=== PATIENT | female | born 1970 | race African-American/Black ===

== ENCOUNTER 2016-04-01 17:19 | Inpatient (IN) | payer MEDICAID ==
[2016-04-01 18:52] VITALS: BP 181/101
--- NOTE | 2016-04-01 19:55 | ED Physician Chart ---
Chief Complaint/HPI - Patient Information Date Seen:: 04/01/16 Time Seen:: 19:51 Chief Complaint:: poor po intake History of Present Illness:: pt is severely confused due to hx of psych disease /psychosis. reportedly from [place] for not eating w drastic weight loss of 10lbs over the last 1 -2 weeks. pt is unable to contribute to her own medical history although she is awake and talking she has trouble answering questions or giving details of hx. no known recent illness nor pain. Allergies:: Allergies Allergy/AdvReac Type Severity Reaction Status Date / Time No Known Allergies Allergy Verified 04/01/16 18:45 Vitals:: Vital Signs - 8 hr 04/01/16 04/01/16 18:52 18:53 Temp 98.1 F HR 62 RR 16 BP 181/101 166/73 O2 Sat % 98 Historian:: EMS, Medical Records, Other Review of Systems - Review of Systems General/Constitutional: No fever, No chills, Weight loss, No weakness, No diaphoresis, No edema, Loss of appetite Skin: No skin lesions, No rash, No bruising Head: No headache, No light-headedness Eyes: No loss of vision, No pain, No diplopia ENT: No earache, No nasal drainage, No sore throat, No tinnitus Neck: No neck pain, No swelling, No thyromegaly, No stiffness, No mass noted Cardio Vascular: No chest pain, No palpitations, No PND, No orthopnea, No edema Pulmonary: No SOB, No cough, No sputum, No wheezing GI: No nausea, No vomiting, No diarrhea, No pain, No melena, No hematochezia, No constipation, No hematemesis G/U: No dysuria, No frequency, No hematuria Musculoskeletal: No bone or joint pain, No back pain, No muscle pain Endocrine: No polyuria, No polydipsia Psychiatric: Prior psych history, No depression, No anxiety, No suicidal ideation Hematopoietic: No bruising, No lymphadenopathy Allergic/Immuno: No urticaria, No angioedema Neurological: No syncope, No focal symptoms, No weakness, No paresthesia, No headache, No seizure, No dizziness, Confusion, No vertigo Past Medical History - Past Medical History Past Medical History: HTN, PUD/GERD, Dementia, Other (insomnea, psychosis, fe deficit anemia) Social History: Care Facility Psychiatricy History: Schizophrenia, Dementia, Other (psychosis) Medication: Reviewed Family Medical History - Family Member Father History Unknown: Yes Physical Exam - Physical Examination General/Constitutional: Awake, Well-developed, well-nourished, Alert, No distress, GCS 15, Non-toxic appearing, Ambulatory Head: Atraumatic Eyes: Lids, conjuctiva normal, PERRL, EOMI Skin: Nl inspection, No rash, No skin lesions, No ecchymosis, Well hydrated, No lymphadenopathy ENMT: External ears, nose nl, Nasal exam nl, Lips, teeth, gums nl Neck: Nontender, Full ROM w/o pain, No JVD, No nuchal rigidity, No bruit, No mass, No stridor Respiratory: Nl effort/Exclusion, Clear to Auscultation, No Wheeze/Rhonchi/Rales Cardio Vascular: RRR, No murmur, gallop, rubs, NL S1 S2 GI: No tenderness/rebounding/guarding, No organomegaly, No hernia, Normal BS's, Nondistended, No mass/bruits, No McBurney tenderness Other GI comments:: protuberant belly w firm masses ...hepatomegally and lrg mass palpable to left upper abd also. nontndr. pos nabs. no rebound. : No CVA tenderness Extremities: No tenderness or effusion, Full ROM, normal strength in all extremities, No edema, Normal digits & nails Other Extremities comments:: rash on hands w dark indurated skin (appears chronic) Neuro/Psych: DTR's symmetric, Normal sensory exam, Normal motor strength, Mood normal, Normal gait, No focal deficits Other Neuro/Psych comments:: confused pt- poor historian otw alert and talking and in nad. no focal defecits Misc: normal gait, Normal back, No paraspinal tenderness Labs/Radiology/EKG Results - Lab Results Results: Laboratory Tests 04/01/16 04/01/16 04/01/16 19:58 19:58 20:14 WBC 11.0 H RBC 5.57 H Hgb 12.9 Hct 39.1 MCV 70.1 L MCH 23.1 L MCHC Differential 32.9 RDW 21.9 H Plt Count 439 H MPV 8.3 Band Neutrophils % 5 Neutrophils (Manual) 74 Lymphocytes 16 L Monocytes 4 Eosinophils 1 Platelet Estimate ADEQUATE Platelet Morphology GIANT PLATELETS SEEN Polychromasia 1+ Poikilocytosis 1+ Anisocytosis 1+ Microcytosis 3+ Tear Drop Cells 2+ RBC Morph Micro Appear ABNORMAL Sodium Potassium Chloride Carbon Dioxide Anion Gap BUN Creatinine Est GFR ( Amer) Est GFR (Non-Af Amer) BUN/Creatinine Ratio Glucose Calcium Total Bilirubin AST ALT Alkaline Phosphatase Ammonia Total Protein Albumin Globulin Albumin/Globulin Ratio Triglycerides Cholesterol LDL Cholesterol Direct HDL Cholesterol Lipase TSH Serum , Qual Urine Source CLEAN C Urine Color YELLOW Urine Clarity CLEAR Urine pH 6.0 Ur Specific [place] 1.030 Urine Protein >300 H Urine Glucose (UA) NEGATIVE Urine Ketones NEGATIVE Urine Blood SMALL H Urine Nitrate NEGATIVE Urine Bilirubin NEGATIVE Urine Urobilinogen 1.0 Ur Leukocyte Esterase NEGATIVE Urine RBC 0-2 Urine WBC 6-10 H Ur Epithelial Cells MODERATE Urine Bacteria MODERATE Urine Test NEGATIVE 04/01/16 04/01/16 04/01/16 20:14 20:14 20:14 WBC RBC Hgb Hct MCV MCH MCHC Differential RDW Plt Count MPV Band Neutrophils % Neutrophils (Manual) Lymphocytes Monocytes Eosinophils Platelet Estimate Platelet Morphology Polychromasia Poikilocytosis Anisocytosis Microcytosis Tear Drop Cells RBC Morph Micro Appear Sodium 134 L Potassium 3.9 Chloride 107 Carbon Dioxide 24.5 Anion Gap 6.4 L BUN 27 H Creatinine 1.3 H Est GFR ( Amer) 57.0 Est GFR (Non-Af Amer) 47.1 BUN/Creatinine Ratio 20.8 Glucose 121 H Calcium 9.2 Total Bilirubin 0.6 AST 23 ALT 15 Alkaline Phosphatase 110 H Ammonia Total Protein 7.2 Albumin 4.0 Globulin 3.2 Albumin/Globulin Ratio 1.3 Triglycerides 170 H Cholesterol 148 LDL Cholesterol Direct 66 L HDL Cholesterol 33 Lipase TSH 2.89 Serum , Qual NEGATIVE Urine Source Urine Color Urine Clarity Urine pH Ur Specific [place] Urine Protein Urine Glucose (UA) Urine Ketones Urine Blood Urine Nitrate Urine Bilirubin Urine Urobilinogen Ur Leukocyte Esterase Urine RBC Urine WBC Ur Epithelial Cells Urine Bacteria Urine Test 04/01/16 04/01/16 20:14 20:14 WBC RBC Hgb Hct MCV MCH MCHC Differential RDW Plt Count MPV Band Neutrophils % Neutrophils (Manual) Lymphocytes Monocytes Eosinophils Platelet Estimate Platelet Morphology Polychromasia Poikilocytosis Anisocytosis Microcytosis Tear Drop Cells RBC Morph Micro Appear Sodium Potassium Chloride Carbon Dioxide Anion Gap BUN Creatinine Est GFR ( Amer) Est GFR (Non-Af Amer) BUN/Creatinine Ratio Glucose Calcium Total Bilirubin AST ALT Alkaline Phosphatase Ammonia 56 H Total Protein Albumin Globulin Albumin/Globulin Ratio Triglycerides Cholesterol LDL Cholesterol Direct HDL Cholesterol Lipase 85 H TSH Serum , Qual Urine Source Urine Color Urine Clarity Urine pH Ur Specific [place] Urine Protein Urine Glucose (UA) Urine Ketones Urine Blood Urine Nitrate Urine Bilirubin Urine Urobilinogen Ur Leukocyte Esterase Urine RBC Urine WBC Ur Epithelial Cells Urine Bacteria Urine Test - Radiology Results Results: ct abd/p- massive splenomegally, large amt fecal cont., large uterous, no hydro , no free fluid ED Septic Shock - . Is Septic Shock (SBP<90, OR Lactate>4 mmol\L) present?: No - <6hrs of presentation: Vital Signs: Vital Signs - 8 hr 04/01/16 04/01/16 18:52 18:53 Temp 98.1 F HR 62 RR 16 BP 181/101 166/73 O2 Sat % 98 Reassessment (Disposition) - Reassessment Reassessment:: case dw Dr Cardoso....will admit Reassessment Condition:: Unchanged - Diagnosis Diagnosis:: 1 poor po intake and weight loss 2 massive splenomegally 3 uti 4 mild elevation of lipase and ammonia levels - Patient Disposition Admitted to:: Med/Surg Condition at Disposition:: Unchanged
[2016-04-01 20:30] LABS: HEMATOCRIT 39.1 % (35.0-45.0); HEMOGLOBIN 12.9 gm/dL (11.7-15.5); MEAN CELL VOLUME 70.1 fl (81-100); MEAN CORPUSCULAR HEMOGLOBIN 23.1 pg (27.0-31.0); MEAN CORPUSCULAR HGB CONC 32.9 pg (28.0-36.0); MEAN PLATELET VOLUME 8.3 fl; PLATELET COUNT 439 Th/cmm (150-400); RED BLOOD COUNT 5.57 Mil/cmm (3.80-5.10); RED CELL DISTRIBUTION WIDTH 21.9 % (11.5-20.0)
[2016-04-01 20:36] LABS: ALB/GLOB RATIO 1.3 (1.0-1.8); ANION GAP 6.4 (7.0-16.0); BILIRUBIN,TOTAL 0.6 mg/dL (0.3-1.0); BUN/CREATININE RATIO 20.8; CALCIUM SERUM 9.2 mg/dL (8.6-10.3); CARBON DIOXIDE 24.5 mEq/L (21.0-31.0); CREATININE - SERUM 1.3 mg/dL (0.6-1.2); POTASSIUM SERUM 3.9 mEq/L (3.5-5.1)
[2016-04-01 20:45] LABS: URINE COLOR YELLOW
[2016-04-01 20:46] LABS: URINE BILIRUBIN NEGATIVE (NEGATIVE); URINE BLOOD SMALL (NEGATIVE); URINE GLUCOSE (UA) NEGATIVE (NEGATIVE); URINE KETONE NEGATIVE (NEGATIVE); URINE PROTEIN >300 mg/dL (NEGATIVE)
[2016-04-01 21:03] LABS: TOTAL CELLS COUNTED 100
[2016-04-01 21:04] LABS: ANISOCYTOSIS 1+; BAND NEUTROPHILE 5 % (0-10); EOSINOPHIL 1 % (0-5); MICROCYTOSIS 3+; NEUTROPHILS 74 % (40-80); PLATELET ESTIMATE ADEQUATE (NORMAL); PLATELET MORPHOLOGY GIANT PLATELETS SEEN (NORMAL); POIKILOCYTOSIS 1+
[2016-04-01 21:05] LABS: POLYCHROMASIA 1+
[2016-04-01 21:06] LABS: TEAR DROP CELLS 2+
[2016-04-01 21:13] LABS: URINE BACTERIA MODERATE /hpf (NONE SEEN); URINE EPITHELIAL CELLS MODERATE /lpf (FEW); URINE RBC 0-2 /hpf (0-5)
[2016-04-01] MEDS ORDERED: Albuterol Nebulizer 2.5mg/3mL IH PRN (21:43)
[2016-04-01] MEDS ORDERED: Maalox 30 mL Cup PO PRN (21:43)
[2016-04-01] MEDS ORDERED: D5-0.45NS 1,000 ML IV SCH (21:45)
[2016-04-02] MEDS: Levofloxacin 500mg/100mL 500 MG/100 ML BAG IV SCH (05:55)
[2016-04-02 08:14] LABS: HEP B CORE IGM Negative (Negative); HEP C ANTIBODY <0.1 s/co ratio (0.0-0.9)
[2016-04-02] MEDS: Multivitamin w/ Minerals Tab PO SCH (08:49)
[2016-04-02] MEDS: Ferrous Sulfate 325 MG TAB PO SCH (08:49)
[2016-04-02] MEDS: Pantoprazole 40 mg EC Tab PO SCH ×2 (08:50→16:11)
[2016-04-02] MEDS ORDERED: NORGESTIMATE PO SCH (09:00)
[2016-04-02] MEDS ORDERED: [UNRECOGNIZED DRUG - OTHER] PO SCH (09:00)
[2016-04-02] MEDS ORDERED: ETHINYL ESTRADIOL PO SCH (09:00)
--- NOTE | 2016-04-02 11:27 | Diagnostic Imaging Report ---
CT abdomen and pelvis without intravenous contrast Indication: Abdominal mass, poor oral intake Comparison: None, Technique: Axial images were obtained from the lung bases to the bilateral proximal femurs without IV contrast. Coronal reconstructions were made. total DLP: 372, CTDI7.3 FINDINGS: Hypoventilatory and atelectatic changes of the lung bases are noted. Exam is limited due to lack of IV and oral contrast. There is massive hepatosplenomegaly. Small adjacent splenic granulomas are noted. There is associated mass effect upon the regional organs. There is poor evaluation of pancreas on this exam. Limited evaluation of the kidneys demonstrates no evidence of hydronephrosis or nephrolithiasis. The adrenal glands are poorly visualized. Prominent heterogeneous uterus is noted with calcifications. Copious amount of stool is noted. The no evidence of acute appendicitis. No evidence of free air or free fluid. The osseous structures demonstrate no acute abnormalities. IMPRESSION: Limited exam due to lack of IV and oral contrast. Massive hepatosplenomegaly. Please correlate with patient's clinical history and possible history of malignancy. Follow-up is recommended. Note exam was limited due to lack of IV and oral contrast Copious stool throughout the colon. Correlate clinically for constipation. Heterogeneous prominent uterus with calcifications which may be due to fibroid changes. Ultrasound would provide additional detail and assessment.
[2016-04-02 13:05] LABS: HEMOGLOBIN 12.3 gm/dL (11.7-15.5); MEAN CORPUSCULAR HEMOGLOBIN 23.1 pg (27.0-31.0)
[2016-04-02 13:14] LABS: HEMATOCRIT 37.6 % (35.0-45.0); MEAN CELL VOLUME 70.8 fl (81-100); MEAN CORPUSCULAR HGB CONC 32.7 pg (28.0-36.0); MEAN PLATELET VOLUME 9.6 fl; PLATELET COUNT 493 Th/cmm (150-400); RED BLOOD COUNT 5.31 Mil/cmm (3.80-5.10); RED CELL DISTRIBUTION WIDTH 22.4 % (11.5-20.0); WHITE BLOOD COUNT 9.6 Th/cmm (4.8-10.8)
[2016-04-02 13:17] LABS: INR 1.28 (0.5-1.4); PROTHROMBIN TIME (TEST) 12.9 SECONDS (9.5-11.5)
[2016-04-02 13:20] LABS: ANION GAP 4.1 (7.0-16.0); BUN - UREA NITROGEN 26 mg/dL (7-25); BUN/CREATININE RATIO 28.9; CALCIUM SERUM 8.9 mg/dL (8.6-10.3); CARBON DIOXIDE 25.1 mEq/L (21.0-31.0); CHLORIDE 110 mEq/L (98-107); CREATININE - SERUM 0.9 mg/dL (0.6-1.2); GLUCOSE 69 mg/dL (70-105); POTASSIUM SERUM 4.2 mEq/L (3.5-5.1); SODIUM SERUM 135 mEq/L (136-145)
[2016-04-02 13:45] LABS: ANISOCYTOSIS 1+; BAND NEUTROPHILE 7 % (0-10); METAMYELOCYTE 1 % (0-0); NEUTROPHILS 75 % (40-80); PLATELET ESTIMATE INCREASED PLATELETS (NORMAL); PLATELET MORPHOLOGY GIANT PLATELETS SEEN (NORMAL); TOTAL CELLS COUNTED 100
--- NOTE | 2016-04-02 16:28 | Internal Medicine Prog Note ---
Internal Medicine Subjective - Subjective Service Date: 04/02/16 ([id number]) Internal Medicine Objective - Results Result Diagrams: 04/02/16 12:33 04/02/16 12:33 Recent Labs: Laboratory Last Values WBC 9.6 Th/cmm (4.8-10.8) 04/02/16 12:33 RBC 5.31 Mil/cmm (3.80-5.10) H 04/02/16 12:33 Hgb 12.3 gm/dL (11.7-15.5) 04/02/16 12:33 Hct 37.6 % (35.0-45.0) 04/02/16 12:33 MCV 70.8 fl (81-100) L 04/02/16 12:33 MCH 23.1 pg (27.0-31.0) L 04/02/16 12:33 MCHC Differential 32.7 pg (28.0-36.0) 04/02/16 12:33 RDW 22.4 % (11.5-20.0) H 04/02/16 12:33 Plt Count 493 Th/cmm (150-400) H 04/02/16 12:33 MPV 9.6 fl 04/02/16 12:33 Band Neutrophils % 7 % (0-10) 04/02/16 12:33 Neutrophils (Manual) 75 % (40-80) 04/02/16 12:33 Lymphocytes 9 % (20-50) L 04/02/16 12:33 Monocytes 8 % (2-10) 04/02/16 12:33 Eosinophils Not Reportable 04/02/16 12:33 Metamyelocytes 1 % (0-0) H 04/02/16 12:33 Platelet Estimate INCREASED PLATELETS (NORMAL) 04/02/16 12:33 Platelet Morphology GIANT PLATELETS SEEN (NORMAL) 04/02/16 12:33 Polychromasia 1+ 04/01/16 20:14 Poikilocytosis 1+ 04/01/16 20:14 Anisocytosis 1+ 04/02/16 12:33 Microcytosis 3+ 04/01/16 20:14 Tear Drop Cells 2+ 04/01/16 20:14 RBC Morph Micro Appear ABNORMAL (NORMAL) 04/02/16 12:33 PT 12.9 SECONDS (9.5-11.5) H 04/02/16 12:33 INR 1.28 (0.5-1.4) 04/02/16 12:33 PTT (Actin FS) 40.4 SECONDS (26.0-38.0) H 04/02/16 12:33 Sodium 135 mEq/L (136-145) L 04/02/16 12:33 Potassium 4.2 mEq/L (3.5-5.1) 04/02/16 12:33 Chloride 110 mEq/L (98-107) H 04/02/16 12:33 Carbon Dioxide 25.1 mEq/L (21.0-31.0) 04/02/16 12:33 Anion Gap 4.1 (7.0-16.0) L 04/02/16 12:33 BUN 26 mg/dL (7-25) H 04/02/16 12:33 Creatinine 0.9 mg/dL (0.6-1.2) 04/02/16 12:33 Est GFR ( Amer) > 60.0 ml/min 04/02/16 12:33 Est GFR (Non-Af Amer) > 60.0 ml/min 04/02/16 12:33 BUN/Creatinine Ratio 28.9 04/02/16 12:33 Glucose 69 mg/dL (70-105) L 04/02/16 12:33 Calcium 8.9 mg/dL (8.6-10.3) 04/02/16 12:33 Total Bilirubin 0.6 mg/dL (0.3-1.0) 04/01/16 20:14 AST 23 U/L (13-39) 04/01/16 20:14 ALT 15 U/L (7-52) 04/01/16 20:14 Alkaline Phosphatase 110 U/L (34-104) H 04/01/16 20:14 Ammonia 56 umol/L (16-53) H 04/01/16 20:14 Total Protein 7.2 gm/dL (6.0-8.3) 04/01/16 20:14 Albumin 4.0 gm/dL (3.7-5.3) 04/01/16 20:14 Globulin 3.2 gm/dL 04/01/16 20:14 Albumin/Globulin Ratio 1.3 (1.0-1.8) 04/01/16 20:14 Triglycerides 170 mg/dL (<150) H 04/01/16 20:14 Cholesterol 148 mg/dL (<200) 04/01/16 20:14 LDL Cholesterol Direct 66 mg/dL (75-193) L 04/01/16 20:14 HDL Cholesterol 33 mg/dL (23-92) 04/01/16 20:14 Lipase 85 U/L (11-82) H 04/01/16 20:14 Carcinoembryonic Ag 0.8 ng/mL (0.0-4.7) 04/01/16 20:14 CA 19-9 Antigen 10 U/mL (0-35) 04/01/16 20:14 CA 125 Antigen 24.9 U/mL (0.0-38.1) 04/01/16 20:14 TSH 2.89 uIU/ml (0.34-5.60) 04/01/16 20:14 Serum , Qual NEGATIVE (NEGATIVE) 04/01/16 20:14 Urine Source CLEAN C 04/01/16 19:58 Urine Color YELLOW 04/01/16 19:58 Urine Clarity CLEAR (CLEAR) 04/01/16 19:58 Urine pH 6.0 04/01/16 19:58 Ur Specific [place] 1.030 (1.005-1.030) 04/01/16 19:58 Urine Protein >300 mg/dL (NEGATIVE) H 04/01/16 19:58 Urine Glucose (UA) NEGATIVE mg/dL (NEGATIVE) 04/01/16 19:58 Urine Ketones NEGATIVE mg/dL (NEGATIVE) 04/01/16 19:58 Urine Blood SMALL (NEGATIVE) H 04/01/16 19:58 Urine Nitrate NEGATIVE (NEGATIVE) 04/01/16 19:58 Urine Bilirubin NEGATIVE (NEGATIVE) 04/01/16 19:58 Urine Urobilinogen 1.0 E.U./dL (0.2 - 1.0) 04/01/16 19:58 Ur Leukocyte Esterase NEGATIVE (NEGATIVE) 04/01/16 19:58 Urine RBC 0-2 /hpf (0-5) 04/01/16 19:58 Urine WBC 6-10 /hpf (0-5) H 04/01/16 19:58 Ur Epithelial Cells MODERATE /lpf (FEW) 04/01/16 19:58 Urine Bacteria MODERATE /hpf (NONE SEEN) 04/01/16 19:58 Urine Test NEGATIVE 04/01/16 19:58 RPR NONREACTIVE (NONREACTIVE) 04/01/16 20:14 Hepatitis A IgM Ab Negative (Negative) 04/01/16 20:14 Hep Bs Antigen Negative (Negative) 04/01/16 20:14 Hep B Core IgM Ab Negative (Negative) 04/01/16 20:14 Hepatitis C Antibody <0.1 s/co ratio (0.0-0.9) 04/01/16 20:14 Heterophile Ab Screen Positive (Negative) 04/01/16 20:14 - Physical Exam Vitals and I&O: Vital Signs Temp 97.8 F 04/01/16 22:41 Pulse 58 04/02/16 16:13 Resp 18 04/01/16 22:41 BP 162/76 04/02/16 16:13 Pulse Ox 99 04/01/16 22:41 Active Medications: Current Medications Acetaminophen (Tylenol) 650 mg PO Q4HR PRN PRN Reason: Pain or Fever >101 Stop: 05/31/16 21:42 Al Hydrox/Mg Hydrox/Simethicone (Maalox) 30 ml PO Q6HR PRN PRN Reason: Constipation Stop: 05/31/16 21:42 Albuterol Sulfate (Albuterol 2.5mg/3ml Neb Ud) 2.5 mg IH Q2HR PRN PRN Reason: Shortness of Breath or Wheeze Stop: 05/31/16 21:42 Ascorbic Acid (Vitamin C) 500 mg PO DAILY [facility] Stop: 06/01/16 08:59 Last Admin: 04/02/16 08:48 Dose: 500 mg Carvedilol (Coreg) 25 mg PO BID [facility] Stop: 06/01/16 08:59 Last Admin: 04/02/16 16:13 Dose: Not Given Clonazepam (Klonopin) 0.5 mg PO BID [facility] PRN Reason: Protocol Stop: 06/01/16 08:59 Last Admin: 04/02/16 16:10 Dose: 0.5 mg Docusate Sodium (Colace) 100 mg PO DAILY [facility] Stop: 06/01/16 08:59 Last Admin: 04/02/16 08:50 Dose: Not Given Famotidine (Pepcid) 20 mg PO DAILY [facility] Stop: 06/01/16 08:59 Last Admin: 04/02/16 08:50 Dose: Not Given Ferrous Sulfate (Iron) 325 mg PO DAILY [facility] Stop: 06/01/16 08:59 Last Admin: 04/02/16 08:49 Dose: 325 mg Dextrose/Sodium Chloride (D5-0.45ns) 1,000 mls @ 70 mls/hr IV .[id number] [facility] Stop: 05/31/16 21:44 Last Admin: 04/02/16 05:49 Dose: 70 mls/hr Levofloxacin (Levaquin Pb) 500 mg in 100 mls @ 100 mls/hr IV Q24HR [facility] Stop: 05/31/16 22:59 Last Admin: 04/02/16 05:55 Dose: 100 mls/hr Lisinopril (Zestril) 10 mg PO DAILY [facility] Stop: 06/01/16 08:59 Last Admin: 04/02/16 08:50 Dose: Not Given Lorazepam (Ativan) 1 mg PO Q4HR PRN; Protocol PRN Reason: Anxiety Stop: 06/01/16 12:58 Meclizine HCl (Antivert) 25 mg PO DAILY PRN PRN Reason: Nausea / Vomiting Stop: 05/31/16 21:42 Miscellaneous (Norgestimate-Ethinyl Estradiol [Ortho Tri-Cyclen 28 Tablet]) 1 each PO DAILY [facility] Stop: 06/01/16 08:59 Olanzapine (Zyprexa) 10 mg PO HS [facility]I PRN Reason: Protocol Stop: 06/01/16 20:59 Ondansetron HCl (Zofran) 4 mg IV Q8H PRN PRN Reason: Nausea / Vomiting Stop: 05/31/16 21:42 Pantoprazole Sodium (Protonix) 40 mg PO BID [facility] Stop: 06/01/16 08:59 Last Admin: 04/02/16 16:11 Dose: 40 mg Paroxetine HCl (Paxil) 10 mg PO DAILY [facility] PRN Reason: Protocol Stop: 06/01/16 08:59 Last Admin: 04/02/16 08:47 Dose: 10 mg Polyethylene Glycol (Miralax) 17 gm PO DAILY [facility] Stop: 06/02/16 08:59 Zolpidem Tartrate (Ambien) 10 mg PO HS PRN PRN Reason: Insomnia Stop: 05/31/16 21:42 Internal Medicine Assmt/Plan - Assessment Assessment: generalized weakness splenomegaly UTI dehydration
--- NOTE | 2016-04-02 17:15 | History & Physical ---
CHIEF COMPLAINT: Poor oral intake. HISTORY OF PRESENT ILLNESS: This is a 45-year-old female who is a resident of [facility] who is admitted here to the med/surg unit. According to nursing staff at [facility], the patient was not eating, had a poor appetite and drastic weight loss of over 10 pounds over the last 1-2 weeks. Upon examination, the patient's abdomen is distended, nontender. The patient denies any abdominal pain. PAST MEDICAL HISTORY: Hypertension, GERD, dementia. Paranoid schizophrenia and major depressive disorder. PAST SURGICAL HISTORY: Unknown. SOCIAL HISTORY: The patient is a senior care resident, requiring 24-hour nursing care. MEDICATIONS: Please see medication reconciliation sheet. FAMILY HISTORY: Noncontributory. ALLERGIES: No drug allergies. REVIEW OF SYSTEMS: Unable to obtain. The patient is not cooperative with answering questions. PHYSICAL EXAMINATION: GENERAL: The patient is well developed, well nourished, in no apparent distress. VITAL SIGNS: Temperature 97.8, heart rate 65, blood pressure is ____, respirations 18, O2 99%. HEENT: Head; normocephalic, atraumatic. NECK: Supple. No mass. LUNGS: Clear bilaterally upon auscultation. CARDIOVASCULAR: Regular rate and rhythm. No murmurs or gallops. ABDOMEN: Distended, bowel sounds present in all 4 quadrants. LABORATORY DATA: WBC 9.6, H and H of 12.3 and 37.6, platelet of 493. Sodium 135, potassium 4.2, chloride 110, carbon dioxide 25.1, BUN of 26, creatinine 0.9. The patient had a CT of the abdomen and pelvis done and the impression is massive hepatosplenomegaly, ____ copious stool throughout the colon. ASSESSMENT: Generalized weakness, splenomegaly, urinary tract infection, dehydration. PLAN: The patient to be admitted to med/surg unit. The patient to have a consultation with Dr. Luis and Dr. James. The patient to be on a 2 g sodium diet, kept the patient on IV fluids for hydration. The patient will be on stool softener. We will continue to monitor the patient. JOB# [id number]
--- NOTE | 2016-04-02 21:42 | Consultation ---
PSYCHIATRIC CONSULTATION The patient was seen, chart reviewed, and discussed with staff. HISTORY OF PRESENT ILLNESS: The patient is a 45-year-old female with a history of schizophrenia, paranoid type versus schizoaffective disorder, apparently has been confused more, disorganized, refusing medications and has lost weight significantly and now is admitted to medical floor for increased debilitation. The patient remains highly paranoid, suspicious, thinking that people are coming after her. The patient is taking Invega Sustenna, but this medication was discontinued because her prolactin level was elevated. The patient since that time started to decompensate and condition got worse. PAST PSYCHIATRIC HISTORY: Multiple hospitalizations and chronic history of mental illness. PAST MEDICAL HISTORY: As per H and P. The patient is with anemia and significant weight loss and hypertension. PSYCHOSOCIAL HISTORY: The patient resides at [facility] since she requires complete care. MENTAL STATUS EXAMINATION: The patient's speech is fast at times. Affect is irritable. The patient remains highly paranoid and suspicious. The patient is internally preoccupied. Insight is poor. Judgment is impaired. ASSESSMENT: Schizoaffective disorder, psychotic phase. PLAN: We will use Zyprexa 10 mg p.o. at bedtime. Discontinue risperidone. Likelihood of prolactinemia is very low with Zyprexa. We will follow the patient while in the hospital. Thank you for the consultation. JOB# [id number]
--- NOTE | 2016-04-02 23:45 | Admit Criteria Form ---
Admit Criteria Forms - Admit Criteria Diagnosis: URINARY COMPLICATIONS Clinical Indications for Inpatient Care (Place 'X' for any and all applicable criteria): Ongoing inpatient care may be indicated for urinary complications with ANY ONE of the following: [ X]I. Urinary tract infection requiring inpatient care as indicated by ANY ONE of the following(8)(19)(20): [ ]a) Severe symptoms (eg, high fever, severe pain) [ ]b) Vomiting or dehydration requiring ongoing inpatient care [X]c) IV antibiotic needs that cannot be managed at lower level of care [ ]d) Hemodynamic instability [ ]e) Obstruction of collecting system by stone or tumor [ ]II. Urinary retention requiring drainage or surgery (3)(4)(5)(17)(18) [ ]III. Renal failure (Use Renal Failure Criteria for further information.) [ ]IV. Oliguria(30) [ ]V. Post obstructive diuresis requiring close monitoring of urine output and intravenous compensation for excessive fluid losses(33) Extended stay beyond goal length of stay for primary condition may be needed until ALL of the following are present(3)(4)(5)(8): [ ]a) Renal function (creatinine) at baseline, or daily decreases in creatinine consistent with renal function return [ ]b) Voiding adequately or with urinary catheter or percutaneous suprapubic tube and management regimen in place that is performable at lower level of care. [ ]c) Urine output adequate [ ]d) Fever absent or resolving [ ]e) Infection absent or treatable at next level of care The original [employer] content created by [employer] has been revised. The portions of the content which have been revised are identified through the use of italic text or in bold, and [facility] has neither reviewed nor approved the modified material. All other unmodified content is copyright [employer] [facility] [employer] Please see references footnoted in the original [facility] [employer] edition 2016 Admit Criteria Met?: Yes
--- NOTE | 2016-04-03 00:40 | Consultation ---
INPATIENT GI CONSULT REFERRING PHYSICIAN: Dr. Cardoso. REASON FOR CONSULTATION: Abdominal pain and fecal impaction. HISTORY OF PRESENT ILLNESS: This is a 45-year-old female from a skilled facility. The patient has underlying psychiatric illness, is a poor historian. We are asked to see the patient because they think she has fecal impaction. A poor historian. PAST MEDICAL HISTORY: Hypertension, peptic ulcer disease, GERD, dementia, and schizophrenia. PAST SURGICAL HISTORY: None to abdomen. FAMILY HISTORY: Noncontributory. SOCIAL HISTORY: Resident of skilled facility. ALLERGIES: None. MEDICATIONS: Tylenol, Maalox, albuterol, Coreg, Klonopin, docusate, Pepcid, iron, Levaquin, , Ativan, Antivert, Zyprexa, Protonix, Paxil, and Ambien. REVIEW OF SYSTEMS: Unobtainable. PHYSICAL EXAMINATION: VITAL SIGNS: Temperature 97.8, breathing 18, pulse of 65, blood pressure 151/70, and satting 99%. GENERAL: In no apparent distress. EYES: Anicteric. Normal conjunctivae. HEENT: Normocephalic and atraumatic. Moist mucous membranes. NECK: Soft and supple. CHEST: Clear, normal effort. CARDIOVASCULAR: Regular rate and rhythm. ABDOMEN: Soft and nontender. Mildly distended. SKIN: Warm and dry. EXTREMITIES: Reveal no cyanosis. PSYCHOLOGIC: Awake. LABORATORY DATA: White count 9.6, hemoglobin 12.3, and platelets of 493,000. INR is 1.28. CT abdomen and pelvis showed massive hepatosplenomegaly, copious amounts of stool throughout the entire colon, constipation, fibroid uterus. IMPRESSION: This is a 45-year-old female with constipation, fecal impaction, likely caused the abdominal discomfort. The patient again is a poor historian, unable to give any meaningful history. We could try to give the patient laxatives ____ that would help to improve bowel movements. In the future, the patient may need further testing such as barium enema versus a colonoscopy. PLAN: 1. Laxatives. 2. Consider barium enema versus colonoscopy in the near future. Thank you for allowing me to participate. Please call me if you have any questions. JOB# [id number]
[2016-04-03] MEDS: Levofloxacin 500mg/100mL 500 MG/100 ML BAG IV SCH ×2 (05:42→22:21)
[2016-04-03 09:19] LABS: FOLIC ACID 16.8 ng/mL (>3.0)
[2016-04-03] MEDS: Ferrous Sulfate 325 MG TAB PO SCH (09:21)
[2016-04-03] MEDS: Multivitamin w/ Minerals Tab PO SCH (09:21)
[2016-04-03] MEDS: Pantoprazole 40 mg EC Tab PO SCH ×2 (09:32→16:46)
[2016-04-03] MEDS: POLYETHYLENE GLYCOL 3350 17 GM PACK PO SCH (09:32)
--- NOTE | 2016-04-03 12:52 | Internal Medicine Prog Note ---
Internal Medicine Subjective - Subjective Service Date: 04/03/16 Patient seen and examined:: with staff Patient is:: awake Internal Medicine Objective - Results Result Diagrams: 04/02/16 12:33 04/02/16 12:33 Recent Labs: Laboratory Last Values WBC 9.6 Th/cmm (4.8-10.8) 04/02/16 12:33 RBC 5.31 Mil/cmm (3.80-5.10) H 04/02/16 12:33 Hgb 12.3 gm/dL (11.7-15.5) 04/02/16 12:33 Hct 37.6 % (35.0-45.0) 04/02/16 12:33 MCV 70.8 fl (81-100) L 04/02/16 12:33 MCH 23.1 pg (27.0-31.0) L 04/02/16 12:33 MCHC Differential 32.7 pg (28.0-36.0) 04/02/16 12:33 RDW 22.4 % (11.5-20.0) H 04/02/16 12:33 Plt Count 493 Th/cmm (150-400) H 04/02/16 12:33 MPV 9.6 fl 04/02/16 12:33 Band Neutrophils % 7 % (0-10) 04/02/16 12:33 Neutrophils (Manual) 75 % (40-80) 04/02/16 12:33 Lymphocytes 9 % (20-50) L 04/02/16 12:33 Monocytes 8 % (2-10) 04/02/16 12:33 Eosinophils Not Reportable 04/02/16 12:33 Metamyelocytes 1 % (0-0) H 04/02/16 12:33 Platelet Estimate INCREASED PLATELETS (NORMAL) 04/02/16 12:33 Platelet Morphology GIANT PLATELETS SEEN (NORMAL) 04/02/16 12:33 Polychromasia 1+ 04/01/16 20:14 Poikilocytosis 1+ 04/01/16 20:14 Anisocytosis 1+ 04/02/16 12:33 Microcytosis 3+ 04/01/16 20:14 Tear Drop Cells 2+ 04/01/16 20:14 RBC Morph Micro Appear ABNORMAL (NORMAL) 04/02/16 12:33 PT 12.9 SECONDS (9.5-11.5) H 04/02/16 12:33 INR 1.28 (0.5-1.4) 04/02/16 12:33 PTT (Actin FS) 40.4 SECONDS (26.0-38.0) H 04/02/16 12:33 Sodium 135 mEq/L (136-145) L 04/02/16 12:33 Potassium 4.2 mEq/L (3.5-5.1) 04/02/16 12:33 Chloride 110 mEq/L (98-107) H 04/02/16 12:33 Carbon Dioxide 25.1 mEq/L (21.0-31.0) 04/02/16 12:33 Anion Gap 4.1 (7.0-16.0) L 04/02/16 12:33 BUN 26 mg/dL (7-25) H 04/02/16 12:33 Creatinine 0.9 mg/dL (0.6-1.2) 04/02/16 12:33 Est GFR ( Amer) > 60.0 ml/min 04/02/16 12:33 Est GFR (Non-Af Amer) > 60.0 ml/min 04/02/16 12:33 BUN/Creatinine Ratio 28.9 04/02/16 12:33 Glucose 69 mg/dL (70-105) L 04/02/16 12:33 Calcium 8.9 mg/dL (8.6-10.3) 04/02/16 12:33 Total Bilirubin 0.6 mg/dL (0.3-1.0) 04/01/16 20:14 AST 23 U/L (13-39) 04/01/16 20:14 ALT 15 U/L (7-52) 04/01/16 20:14 Alkaline Phosphatase 110 U/L (34-104) H 04/01/16 20:14 Ammonia 56 umol/L (16-53) H 04/01/16 20:14 Total Protein 7.2 gm/dL (6.0-8.3) 04/01/16 20:14 Albumin 4.0 gm/dL (3.7-5.3) 04/01/16 20:14 Globulin 3.2 gm/dL 04/01/16 20:14 Albumin/Globulin Ratio 1.3 (1.0-1.8) 04/01/16 20:14 Triglycerides 170 mg/dL (<150) H 04/01/16 20:14 Cholesterol 148 mg/dL (<200) 04/01/16 20:14 LDL Cholesterol Direct 66 mg/dL (75-193) L 04/01/16 20:14 HDL Cholesterol 33 mg/dL (23-92) 04/01/16 20:14 Lipase 85 U/L (11-82) H 04/01/16 20:14 Carcinoembryonic Ag 0.8 ng/mL (0.0-4.7) 04/01/16 20:14 CA 19-9 Antigen 10 U/mL (0-35) 04/01/16 20:14 CA 125 Antigen 24.9 U/mL (0.0-38.1) 04/01/16 20:14 Vitamin B12 1137 pg/mL (211-946) H 04/02/16 12:33 Folic Acid 16.8 ng/mL (>3.0) 04/02/16 12:33 TSH 2.89 uIU/ml (0.34-5.60) 04/01/16 20:14 Serum , Qual NEGATIVE (NEGATIVE) 04/01/16 20:14 Urine Source CLEAN C 04/01/16 19:58 Urine Color YELLOW 04/01/16 19:58 Urine Clarity CLEAR (CLEAR) 04/01/16 19:58 Urine pH 6.0 04/01/16 19:58 Ur Specific [place] 1.030 (1.005-1.030) 04/01/16 19:58 Urine Protein >300 mg/dL (NEGATIVE) H 04/01/16 19:58 Urine Glucose (UA) NEGATIVE mg/dL (NEGATIVE) 04/01/16 19:58 Urine Ketones NEGATIVE mg/dL (NEGATIVE) 04/01/16 19:58 Urine Blood SMALL (NEGATIVE) H 04/01/16 19:58 Urine Nitrate NEGATIVE (NEGATIVE) 04/01/16 19:58 Urine Bilirubin NEGATIVE (NEGATIVE) 04/01/16 19:58 Urine Urobilinogen 1.0 E.U./dL (0.2 - 1.0) 04/01/16 19:58 Ur Leukocyte Esterase NEGATIVE (NEGATIVE) 04/01/16 19:58 Urine RBC 0-2 /hpf (0-5) 04/01/16 19:58 Urine WBC 6-10 /hpf (0-5) H 04/01/16 19:58 Ur Epithelial Cells MODERATE /lpf (FEW) 04/01/16 19:58 Urine Bacteria MODERATE /hpf (NONE SEEN) 04/01/16 19:58 Urine Test NEGATIVE 04/01/16 19:58 RPR NONREACTIVE (NONREACTIVE) 04/01/16 20:14 Hepatitis A IgM Ab Negative (Negative) 04/01/16 20:14 Hep Bs Antigen Negative (Negative) 04/01/16 20:14 Hep B Core IgM Ab Negative (Negative) 04/01/16 20:14 Hepatitis C Antibody <0.1 s/co ratio (0.0-0.9) 04/01/16 20:14 Heterophile Ab Screen Positive (Negative) 04/01/16 20:14 - Physical Exam Vitals and I&O: Vital Signs Temp 98.2 F 04/03/16 11:56 Pulse 65 04/03/16 11:56 Resp 18 04/03/16 11:56 BP 140/77 04/03/16 11:56 Pulse Ox 99 04/03/16 11:56 Intake & Output 04/02/16 04/03/16 04/03/16 18:59 06:59 18:59 Intake Total 200 120 Balance 200 120 Intake: Oral 200 120 Other: # Voids 3 3 # Bowel Movements 0 Active Medications: Current Medications Acetaminophen (Tylenol) 650 mg PO Q4HR PRN PRN Reason: Pain or Fever >101 Stop: 05/31/16 21:42 Al Hydrox/Mg Hydrox/Simethicone (Maalox) 30 ml PO Q6HR PRN PRN Reason: Constipation Stop: 05/31/16 21:42 Albuterol Sulfate (Albuterol 2.5mg/3ml Neb Ud) 2.5 mg IH Q2HR PRN PRN Reason: Shortness of Breath or Wheeze Stop: 05/31/16 21:42 Ascorbic Acid (Vitamin C) 500 mg PO DAILY [facility] Stop: 06/01/16 08:59 Last Admin: 04/03/16 09:21 Dose: 500 mg Carvedilol (Coreg) 25 mg PO BID [facility] Stop: 06/01/16 08:59 Last Admin: 04/03/16 09:24 Dose: 25 mg Clonazepam (Klonopin) 0.5 mg PO BID [facility] PRN Reason: Protocol Stop: 06/01/16 08:59 Last Admin: 04/03/16 09:23 Dose: 0.5 mg Docusate Sodium (Colace) 100 mg PO DAILY [facility] Stop: 06/01/16 08:59 Last Admin: 04/03/16 09:31 Dose: Not Given Famotidine (Pepcid) 20 mg PO DAILY [facility] Stop: 06/01/16 08:59 Last Admin: 04/03/16 09:31 Dose: Not Given Ferrous Sulfate (Iron) 325 mg PO DAILY [facility] Stop: 06/01/16 08:59 Last Admin: 04/03/16 09:21 Dose: 325 mg Dextrose/Sodium Chloride (D5-0.45ns) 1,000 mls @ 70 mls/hr IV .[id number] [facility] Stop: 05/31/16 21:44 Last Admin: 04/02/16 05:49 Dose: 70 mls/hr Levofloxacin (Levaquin Pb) 500 mg in 100 mls @ 100 mls/hr IV Q24HR [facility] Stop: 05/31/16 22:59 Last Admin: 04/03/16 05:42 Dose: 100 mls/hr Lisinopril (Zestril) 10 mg PO DAILY [facility] Stop: 06/01/16 08:59 Last Admin: 04/03/16 09:24 Dose: 10 mg Lorazepam (Ativan) 1 mg PO Q4HR PRN; Protocol PRN Reason: Anxiety Stop: 06/01/16 12:58 Meclizine HCl (Antivert) 25 mg PO DAILY PRN PRN Reason: Nausea / Vomiting Stop: 05/31/16 21:42 Miscellaneous (Norgestimate-Ethinyl Estradiol [Ortho Tri-Cyclen 28 Tablet]) 1 each PO DAILY [facility] Stop: 06/01/16 08:59 Olanzapine (Zyprexa) 15 mg PO HS [facility] PRN Reason: Protocol Stop: 06/02/16 12:17 Ondansetron HCl (Zofran) 4 mg IV Q8H PRN PRN Reason: Nausea / Vomiting Stop: 05/31/16 21:42 Pantoprazole Sodium (Protonix) 40 mg PO BID [facility] Stop: 06/01/16 08:59 Last Admin: 04/03/16 09:32 Dose: Not Given Paroxetine HCl (Paxil) 10 mg PO DAILY [facility] PRN Reason: Protocol Stop: 06/01/16 08:59 Last Admin: 04/03/16 09:20 Dose: 10 mg Polyethylene Glycol (Miralax) 17 gm PO DAILY [facility] Stop: 06/02/16 08:59 Last Admin: 04/03/16 09:32 Dose: Not Given Zolpidem Tartrate (Ambien) 10 mg PO HS PRN PRN Reason: Insomnia Stop: 05/31/16 21:42 General: alert, other (confused) HEENT: NC/AT, PERRLA Neck: Supple Lungs: CTAB Cardiovascular: RRR, Normal S1, Normal S2, without murmur Abdomen: other (distended) Neurological: no change Internal Medicine Assmt/Plan - Assessment Assessment: generalized weakness splenomegaly UTI dehydration - Plan Plan: liver/spleen scan to be done ivabx cbc/bmp in am continue current plan of care
[2016-04-03] MEDS: D5-0.45NS 1,000 ML IV SCH (21:05)
[2016-04-04] MEDS: Ferrous Sulfate 325 MG TAB PO SCH (08:38)
[2016-04-04] MEDS: Multivitamin w/ Minerals Tab PO SCH (08:39)
[2016-04-04] MEDS: POLYETHYLENE GLYCOL 3350 17 GM PACK PO SCH (08:43)
[2016-04-04] MEDS: Pantoprazole 40 mg EC Tab PO SCH ×2 (08:43→16:15)
--- NOTE | 2016-04-04 10:24 | Internal Medicine Prog Note ---
Internal Medicine Subjective - Subjective Patient seen and examined:: with staff, chart reviewed Patient is:: verbal, interactive Patient Complaints of:: congestion Per staff patient is:: no adverse event, noncompliant, confused Internal Medicine Objective - Results Result Diagrams: 04/02/16 12:33 04/02/16 12:33 Recent Labs: Laboratory Last Values WBC 9.6 Th/cmm (4.8-10.8) 04/02/16 12:33 RBC 5.31 Mil/cmm (3.80-5.10) H 04/02/16 12:33 Hgb 12.3 gm/dL (11.7-15.5) 04/02/16 12:33 Hct 37.6 % (35.0-45.0) 04/02/16 12:33 MCV 70.8 fl (81-100) L 04/02/16 12:33 MCH 23.1 pg (27.0-31.0) L 04/02/16 12:33 MCHC Differential 32.7 pg (28.0-36.0) 04/02/16 12:33 RDW 22.4 % (11.5-20.0) H 04/02/16 12:33 Plt Count 493 Th/cmm (150-400) H 04/02/16 12:33 MPV 9.6 fl 04/02/16 12:33 Band Neutrophils % 7 % (0-10) 04/02/16 12:33 Neutrophils (Manual) 75 % (40-80) 04/02/16 12:33 Lymphocytes 9 % (20-50) L 04/02/16 12:33 Monocytes 8 % (2-10) 04/02/16 12:33 Eosinophils Not Reportable 04/02/16 12:33 Metamyelocytes 1 % (0-0) H 04/02/16 12:33 Platelet Estimate INCREASED PLATELETS (NORMAL) 04/02/16 12:33 Platelet Morphology GIANT PLATELETS SEEN (NORMAL) 04/02/16 12:33 Polychromasia 1+ 04/01/16 20:14 Poikilocytosis 1+ 04/01/16 20:14 Anisocytosis 1+ 04/02/16 12:33 Microcytosis 3+ 04/01/16 20:14 Tear Drop Cells 2+ 04/01/16 20:14 RBC Morph Micro Appear ABNORMAL (NORMAL) 04/02/16 12:33 PT 12.9 SECONDS (9.5-11.5) H 04/02/16 12:33 INR 1.28 (0.5-1.4) 04/02/16 12:33 PTT (Actin FS) 40.4 SECONDS (26.0-38.0) H 04/02/16 12:33 Sodium 135 mEq/L (136-145) L 04/02/16 12:33 Potassium 4.2 mEq/L (3.5-5.1) 04/02/16 12:33 Chloride 110 mEq/L (98-107) H 04/02/16 12:33 Carbon Dioxide 25.1 mEq/L (21.0-31.0) 04/02/16 12:33 Anion Gap 4.1 (7.0-16.0) L 04/02/16 12:33 BUN 26 mg/dL (7-25) H 04/02/16 12:33 Creatinine 0.9 mg/dL (0.6-1.2) 04/02/16 12:33 Est GFR ( Amer) > 60.0 ml/min 04/02/16 12:33 Est GFR (Non-Af Amer) > 60.0 ml/min 04/02/16 12:33 BUN/Creatinine Ratio 28.9 04/02/16 12:33 Glucose 69 mg/dL (70-105) L 04/02/16 12:33 Calcium 8.9 mg/dL (8.6-10.3) 04/02/16 12:33 Total Bilirubin 0.6 mg/dL (0.3-1.0) 04/01/16 20:14 AST 23 U/L (13-39) 04/01/16 20:14 ALT 15 U/L (7-52) 04/01/16 20:14 Alkaline Phosphatase 110 U/L (34-104) H 04/01/16 20:14 Ammonia 56 umol/L (16-53) H 04/01/16 20:14 Total Protein 7.2 gm/dL (6.0-8.3) 04/01/16 20:14 Albumin 4.0 gm/dL (3.7-5.3) 04/01/16 20:14 Globulin 3.2 gm/dL 01/18/17 20:14 Albumin/Globulin Ratio 1.3 (1.0-1.8) 04/01/16 20:14 Triglycerides 170 mg/dL (<150) H 04/01/16 20:14 Cholesterol 148 mg/dL (<200) 04/01/16 20:14 LDL Cholesterol Direct 66 mg/dL (75-193) L 04/01/16 20:14 HDL Cholesterol 33 mg/dL (23-92) 04/01/16 20:14 Lipase 85 U/L (11-82) H 04/01/16 20:14 Carcinoembryonic Ag 0.8 ng/mL (0.0-4.7) 04/01/16 20:14 CA 19-9 Antigen 10 U/mL (0-35) 04/01/16 20:14 CA 125 Antigen 24.9 U/mL (0.0-38.1) 04/01/16 20:14 Vitamin B12 1137 pg/mL (211-946) H 04/02/16 12:33 Folic Acid 16.8 ng/mL (>3.0) 04/02/16 12:33 TSH 2.89 uIU/ml (0.34-5.60) 04/01/16 20:14 Serum , Qual NEGATIVE (NEGATIVE) 04/01/16 20:14 Urine Source CLEAN C 04/01/16 19:58 Urine Color YELLOW 04/01/16 19:58 Urine Clarity CLEAR (CLEAR) 04/01/16 19:58 Urine pH 6.0 04/01/16 19:58 Ur Specific [place] 1.030 (1.005-1.030) 04/01/16 19:58 Urine Protein >300 mg/dL (NEGATIVE) H 04/01/16 19:58 Urine Glucose (UA) NEGATIVE mg/dL (NEGATIVE) 04/01/16 19:58 Urine Ketones NEGATIVE mg/dL (NEGATIVE) 04/01/16 19:58 Urine Blood SMALL (NEGATIVE) H 04/01/16 19:58 Urine Nitrate NEGATIVE (NEGATIVE) 04/01/16 19:58 Urine Bilirubin NEGATIVE (NEGATIVE) 04/01/16 19:58 Urine Urobilinogen 1.0 E.U./dL (0.2 - 1.0) 04/01/16 19:58 Ur Leukocyte Esterase NEGATIVE (NEGATIVE) 04/01/16 19:58 Urine RBC 0-2 /hpf (0-5) 04/01/16 19:58 Urine WBC 6-10 /hpf (0-5) H 04/01/16 19:58 Ur Epithelial Cells MODERATE /lpf (FEW) 04/01/16 19:58 Urine Bacteria MODERATE /hpf (NONE SEEN) 04/01/16 19:58 Urine Test NEGATIVE 04/01/16 19:58 RPR NONREACTIVE (NONREACTIVE) 04/01/16 20:14 Hepatitis A IgM Ab Negative (Negative) 04/01/16 20:14 Hep Bs Antigen Negative (Negative) 04/01/16 20:14 Hep B Core IgM Ab Negative (Negative) 04/01/16 20:14 Hepatitis C Antibody <0.1 s/co ratio (0.0-0.9) 04/01/16 20:14 Heterophile Ab Screen Positive (Negative) 04/01/16 20:14 - Physical Exam Vitals and I&O: Vital Signs Temp 97.8 F 04/04/16 08:14 Pulse 58 04/04/16 08:42 Resp 18 04/04/16 08:14 BP 150/77 04/04/16 08:42 Pulse Ox 100 04/04/16 08:14 Intake & Output 04/03/16 04/04/16 04/04/16 18:59 06:59 18:59 Intake Total 200 Balance 200 Intake: Oral 200 Active Medications: Current Medications Acetaminophen (Tylenol) 650 mg PO Q4HR PRN PRN Reason: Pain or Fever >101 Stop: 05/31/16 21:42 Al Hydrox/Mg Hydrox/Simethicone (Maalox) 30 ml PO Q6HR PRN PRN Reason: Constipation Stop: 05/31/16 21:42 Albuterol Sulfate (Albuterol 2.5mg/3ml Neb Ud) 2.5 mg IH Q2HR PRN PRN Reason: Shortness of Breath or Wheeze Stop: 05/31/16 21:42 Ascorbic Acid (Vitamin C) 500 mg PO DAILY [facility] Stop: 06/01/16 08:59 Last Admin: 04/04/16 08:39 Dose: 500 mg Carvedilol (Coreg) 25 mg PO BID [facility] Stop: 06/01/16 08:59 Last Admin: 04/04/16 08:42 Dose: 25 mg Clonazepam (Klonopin) 0.5 mg PO BID [facility] PRN Reason: Protocol Stop: 06/01/16 08:59 Last Admin: 04/04/16 08:41 Dose: 0.5 mg Docusate Sodium (Colace) 100 mg PO DAILY [facility] Stop: 06/01/16 08:59 Last Admin: 04/04/16 08:42 Dose: Not Given Famotidine (Pepcid) 20 mg PO DAILY [facility] Stop: 06/01/16 08:59 Last Admin: 04/04/16 08:42 Dose: Not Given Ferrous Sulfate (Iron) 325 mg PO DAILY [facility] Stop: 06/01/16 08:59 Last Admin: 04/04/16 08:38 Dose: 325 mg Levofloxacin (Levaquin Pb) 500 mg in 100 mls @ 100 mls/hr IV Q24HR [facility] Stop: 05/31/16 22:59 Last Admin: 04/03/16 22:21 Dose: 100 mls/hr Dextrose/Sodium Chloride (D5-0.45ns) 1,000 mls @ 50 mls/hr IV .Q20H [facility] Stop: 06/02/16 20:34 Last Admin: 04/03/16 21:05 Dose: 50 mls/hr Lisinopril (Zestril) 10 mg PO DAILY [facility] Stop: 06/01/16 08:59 Last Admin: 04/04/16 08:41 Dose: 10 mg Lorazepam (Ativan) 1 mg PO Q4HR PRN; Protocol PRN Reason: Anxiety Stop: 06/01/16 12:58 Meclizine HCl (Antivert) 25 mg PO DAILY PRN PRN Reason: Nausea / Vomiting Stop: 05/31/16 21:42 Miscellaneous (Norgestimate-Ethinyl Estradiol [Ortho Tri-Cyclen 28 Tablet]) 1 each PO DAILY [facility] Stop: 06/01/16 08:59 Olanzapine (Zyprexa) 15 mg PO HS [facility] PRN Reason: Protocol Stop: 06/02/16 20:59 Last Admin: 04/03/16 21:05 Dose: 15 mg Ondansetron HCl (Zofran) 4 mg IV Q8H PRN PRN Reason: Nausea / Vomiting Stop: 05/31/16 21:42 Pantoprazole Sodium (Protonix) 40 mg PO BID [facility] Stop: 06/01/16 08:59 Last Admin: 04/04/16 08:43 Dose: Not Given Paroxetine HCl (Paxil) 10 mg PO DAILY [facility] PRN Reason: Protocol Stop: 06/01/16 08:59 Last Admin: 04/04/16 08:40 Dose: 10 mg Polyethylene Glycol (Miralax) 17 gm PO DAILY [facility] Stop: 06/02/16 08:59 Last Admin: 04/04/16 08:43 Dose: Not Given Zolpidem Tartrate (Ambien) 10 mg PO HS PRN PRN Reason: Insomnia Stop: 05/31/16 21:42 General: demented HEENT: NC/AT, PERRLA Neck: Supple, No JVD Lungs: CTAB Cardiovascular: RRR, Normal S1, Normal S2 Abdomen: soft non-tender, globular Extremities: excoriation Neurological: no change Internal Medicine Assmt/Plan - Assessment Assessment: generalized weakness splenomegaly UTI dehydration agitation - Plan Plan: cont on iv abx adjust psych meds fall precaution elzia rn
--- NOTE | 2016-04-04 12:10 | Diagnostic Imaging Report ---
Radionuclide liver spleen scan HISTORY: Hepatosplenomegaly 4.6 mCi technetium sulfur colloid using the exam. The exam demonstrates marked enlargement of the liver and spleen. No focal abnormalities. No abnormal extrahepatic activity identified. IMPRESSION: 1. Hepatosplenomegaly
[2016-04-04] MEDS: D5-0.45NS 1,000 ML IV SCH (16:54)
[2016-04-05] MEDS: Levofloxacin 500mg/100mL 500 MG/100 ML BAG IV SCH ×2 (03:32→22:52)
[2016-04-05] MEDS: D5-0.45NS 1,000 ML IV SCH ×2 (07:48→21:09)
[2016-04-05] MEDS: Ferrous Sulfate 325 MG TAB PO SCH (08:04)
[2016-04-05] MEDS: Multivitamin w/ Minerals Tab PO SCH (08:06)
[2016-04-05] MEDS: Pantoprazole 40 mg EC Tab PO SCH ×2 (08:07→16:10)
[2016-04-05] MEDS: POLYETHYLENE GLYCOL 3350 17 GM PACK PO SCH (08:07)
--- NOTE | 2016-04-05 11:56 | Internal Medicine Prog Note ---
Internal Medicine Subjective - Subjective Patient seen and examined:: with staff, chart reviewed Patient is:: awake, verbal, interactive, denies any new complaints Patient Complaints of:: congestion Per staff patient is:: no adverse event, confused Internal Medicine Objective - Results Result Diagrams: 04/02/16 12:33 04/02/16 12:33 Recent Labs: Laboratory Last Values WBC 9.6 Th/cmm (4.8-10.8) 04/02/16 12:33 RBC 5.31 Mil/cmm (3.80-5.10) H 04/02/16 12:33 Hgb 12.3 gm/dL (11.7-15.5) 04/02/16 12:33 Hct 37.6 % (35.0-45.0) 04/02/16 12:33 MCV 70.8 fl (81-100) L 04/02/16 12:33 MCH 23.1 pg (27.0-31.0) L 04/02/16 12:33 MCHC Differential 32.7 pg (28.0-36.0) 04/02/16 12:33 RDW 22.4 % (11.5-20.0) H 04/02/16 12:33 Plt Count 493 Th/cmm (150-400) H 04/02/16 12:33 MPV 9.6 fl 04/02/16 12:33 Band Neutrophils % 7 % (0-10) 04/02/16 12:33 Neutrophils (Manual) 75 % (40-80) 04/02/16 12:33 Lymphocytes 9 % (20-50) L 04/02/16 12:33 Monocytes 8 % (2-10) 04/02/16 12:33 Eosinophils Not Reportable 04/02/16 12:33 Metamyelocytes 1 % (0-0) H 04/02/16 12:33 Platelet Estimate INCREASED PLATELETS (NORMAL) 04/02/16 12:33 Platelet Morphology GIANT PLATELETS SEEN (NORMAL) 04/02/16 12:33 Polychromasia 1+ 04/01/16 20:14 Poikilocytosis 1+ 04/01/16 20:14 Anisocytosis 1+ 04/02/16 12:33 Microcytosis 3+ 04/01/16 20:14 Tear Drop Cells 2+ 04/01/16 20:14 RBC Morph Micro Appear ABNORMAL (NORMAL) 04/02/16 12:33 PT 12.9 SECONDS (9.5-11.5) H 04/02/16 12:33 INR 1.28 (0.5-1.4) 04/02/16 12:33 PTT (Actin FS) 40.4 SECONDS (26.0-38.0) H 04/02/16 12:33 Sodium 135 mEq/L (136-145) L 04/02/16 12:33 Potassium 4.2 mEq/L (3.5-5.1) 04/02/16 12:33 Chloride 110 mEq/L (98-107) H 04/02/16 12:33 Carbon Dioxide 25.1 mEq/L (21.0-31.0) 04/02/16 12:33 Anion Gap 4.1 (7.0-16.0) L 04/02/16 12:33 BUN 26 mg/dL (7-25) H 04/02/16 12:33 Creatinine 0.9 mg/dL (0.6-1.2) 04/02/16 12:33 Est GFR ( Amer) > 60.0 ml/min 04/02/16 12:33 Est GFR (Non-Af Amer) > 60.0 ml/min 04/02/16 12:33 BUN/Creatinine Ratio 28.9 04/02/16 12:33 Glucose 69 mg/dL (70-105) L 04/02/16 12:33 Calcium 8.9 mg/dL (8.6-10.3) 04/02/16 12:33 Total Bilirubin 0.6 mg/dL (0.3-1.0) 04/01/16 20:14 AST 23 U/L (13-39) 04/01/16 20:14 ALT 15 U/L (7-52) 04/01/16 20:14 Alkaline Phosphatase 110 U/L (34-104) H 04/01/16 20:14 Ammonia 56 umol/L (16-53) H 04/01/16 20:14 Total Protein 7.2 gm/dL (6.0-8.3) 04/01/16 20:14 Albumin 4.0 gm/dL (3.7-5.3) 04/01/16 20:14 Globulin 3.2 gm/dL 04/01/16 20:14 Albumin/Globulin Ratio 1.3 (1.0-1.8) 04/01/16 20:14 Triglycerides 170 mg/dL (<150) H 04/01/16 20:14 Cholesterol 148 mg/dL (<200) 04/01/16 20:14 LDL Cholesterol Direct 66 mg/dL (75-193) L 04/01/16 20:14 HDL Cholesterol 33 mg/dL (23-92) 04/01/16 20:14 Lipase 85 U/L (11-82) H 04/01/16 20:14 Carcinoembryonic Ag 0.8 ng/mL (0.0-4.7) 04/01/16 20:14 CA 19-9 Antigen 10 U/mL (0-35) 04/01/16 20:14 CA 125 Antigen 24.9 U/mL (0.0-38.1) 04/01/16 20:14 Vitamin B12 1137 pg/mL (211-946) H 04/02/16 12:33 Folic Acid 16.8 ng/mL (>3.0) 04/02/16 12:33 TSH 2.89 uIU/ml (0.34-5.60) 04/01/16 20:14 Serum , Qual NEGATIVE (NEGATIVE) 04/01/16 20:14 Urine Source CLEAN C 04/01/16 19:58 Urine Color YELLOW 04/01/16 19:58 Urine Clarity CLEAR (CLEAR) 04/01/16 19:58 Urine pH 6.0 04/01/16 19:58 Ur Specific [place] 1.030 (1.005-1.030) 04/01/16 19:58 Urine Protein >300 mg/dL (NEGATIVE) H 04/01/16 19:58 Urine Glucose (UA) NEGATIVE mg/dL (NEGATIVE) 04/01/16 19:58 Urine Ketones NEGATIVE mg/dL (NEGATIVE) 04/01/16 19:58 Urine Blood SMALL (NEGATIVE) H 04/01/16 19:58 Urine Nitrate NEGATIVE (NEGATIVE) 04/01/16 19:58 Urine Bilirubin NEGATIVE (NEGATIVE) 04/01/16 19:58 Urine Urobilinogen 1.0 E.U./dL (0.2 - 1.0) 04/01/16 19:58 Ur Leukocyte Esterase NEGATIVE (NEGATIVE) 04/01/16 19:58 Urine RBC 0-2 /hpf (0-5) 04/01/16 19:58 Urine WBC 6-10 /hpf (0-5) H 04/01/16 19:58 Ur Epithelial Cells MODERATE /lpf (FEW) 04/01/16 19:58 Urine Bacteria MODERATE /hpf (NONE SEEN) 04/01/16 19:58 Urine Test NEGATIVE 04/01/16 19:58 RPR NONREACTIVE (NONREACTIVE) 04/01/16 20:14 Hepatitis A IgM Ab Negative (Negative) 04/01/16 20:14 Hep Bs Antigen Negative (Negative) 04/01/16 20:14 Hep B Core IgM Ab Negative (Negative) 04/01/16 20:14 Hepatitis C Antibody <0.1 s/co ratio (0.0-0.9) 04/01/16 20:14 Heterophile Ab Screen Positive (Negative) 04/01/16 20:14 - Physical Exam Vitals and I&O: Vital Signs Temp 98.2 F 04/05/16 07:57 Pulse 63 04/05/16 08:05 Resp 18 04/05/16 08:00 BP 173/97 04/05/16 08:05 Pulse Ox 97 04/05/16 07:57 Intake & Output 04/04/16 04/05/16 04/05/16 18:59 06:59 18:59 Intake Total 990.833 100 745 Balance 990.833 100 745 Intake: Intake, IV Amount 990.833 745 D5-0.45NS 1,000 ml @ 50 990.833 745 mls/hr IV .Q20H [facility] Rx#: [id number] Oral 100 Other: # Voids 3 Active Medications: Current Medications Acetaminophen (Tylenol) 650 mg PO Q4HR PRN PRN Reason: Pain or Fever >101 Stop: 05/31/16 21:42 Al Hydrox/Mg Hydrox/Simethicone (Maalox) 30 ml PO Q6HR PRN PRN Reason: Constipation Stop: 05/31/16 21:42 Albuterol Sulfate (Albuterol 2.5mg/3ml Neb Ud) 2.5 mg IH Q2HR PRN PRN Reason: Shortness of Breath or Wheeze Stop: 05/31/16 21:42 Ascorbic Acid (Vitamin C) 500 mg PO DAILY [facility] Stop: 06/01/16 08:59 Last Admin: 04/05/16 08:06 Dose: 500 mg Carvedilol (Coreg) 25 mg PO BID [facility] Stop: 06/01/16 08:59 Last Admin: 04/05/16 08:05 Dose: 25 mg Clonazepam (Klonopin) 0.5 mg PO BID DEMI PRN Reason: Protocol Stop: 06/01/16 08:59 Last Admin: 04/05/16 08:06 Dose: 0.5 mg Docusate Sodium (Colace) 100 mg PO DAILY [facility] Stop: 06/01/16 08:59 Last Admin: 04/05/16 08:06 Dose: Not Given Famotidine (Pepcid) 20 mg PO DAILY [facility] Stop: 06/01/16 08:59 Last Admin: 04/05/16 08:06 Dose: Not Given Ferrous Sulfate (Iron) 325 mg PO DAILY [facility] Stop: 06/01/16 08:59 Last Admin: 04/05/16 08:04 Dose: 325 mg Levofloxacin (Levaquin Pb) 500 mg in 100 mls @ 100 mls/hr IV Q24HR [facility] Stop: 05/31/16 22:59 Last Admin: 04/05/16 03:32 Dose: 100 mls/hr Dextrose/Sodium Chloride (D5-0.45ns) 1,000 mls @ 50 mls/hr IV .Q20H [facility] Stop: 06/02/16 20:34 Last Admin: 04/05/16 07:48 Dose: 50 mls/hr Lisinopril (Zestril) 10 mg PO DAILY [facility] Stop: 06/01/16 08:59 Last Admin: 04/05/16 08:05 Dose: 10 mg Lorazepam (Ativan) 1 mg PO Q4HR PRN; Protocol PRN Reason: Anxiety Stop: 06/01/16 12:58 Meclizine HCl (Antivert) 25 mg PO DAILY PRN PRN Reason: Nausea / Vomiting Stop: 05/31/16 21:42 Miscellaneous (Norgestimate-Ethinyl Estradiol [Ortho Tri-Cyclen 28 Tablet]) 1 each PO DAILY [facility] Stop: 06/01/16 08:59 Olanzapine (Zyprexa) 15 mg PO HS [facility] PRN Reason: Protocol Stop: 06/02/16 20:59 Last Admin: 04/04/16 20:36 Dose: 15 mg Ondansetron HCl (Zofran) 4 mg IV Q8H PRN PRN Reason: Nausea / Vomiting Stop: 05/31/16 21:42 Pantoprazole Sodium (Protonix) 40 mg PO BID [facility] Stop: 06/01/16 08:59 Last Admin: 04/05/16 08:07 Dose: Not Given Paroxetine HCl (Paxil) 10 mg PO DAILY DEMI PRN Reason: Protocol Stop: 06/01/16 08:59 Last Admin: 04/05/16 08:04 Dose: 10 mg Polyethylene Glycol (Miralax) 17 gm PO DAILY [facility] Stop: 06/02/16 08:59 Last Admin: 04/05/16 08:07 Dose: Not Given Zolpidem Tartrate (Ambien) 10 mg PO HS PRN PRN Reason: Insomnia Stop: 05/31/16 21:42 General: demented HEENT: NC/AT, PERRLA Neck: Supple, No JVD Lungs: congested Cardiovascular: RRR, Normal S1 Abdomen: soft non-tender, globular, non-distended Extremities: excoriation, contracture Neurological: disorganized, unable to follow command Internal Medicine Assmt/Plan - Assessment Assessment: generalized weakness splenomegaly UTI dehydration agitation - Plan Plan: cont on iv abx adjust psych meds fall precaution eliza rn
[2016-04-06 06:16] LABS: HEMATOCRIT 37.3 % (35.0-45.0); MEAN CELL VOLUME 70.3 fl (81-100); MEAN CORPUSCULAR HEMOGLOBIN 22.7 pg (27.0-31.0); MEAN CORPUSCULAR HGB CONC 32.3 pg (28.0-36.0); MEAN PLATELET VOLUME 7.8 fl; RED CELL DISTRIBUTION WIDTH 23.1 % (11.5-20.0); WHITE BLOOD COUNT 8.4 Th/cmm (4.8-10.8)
[2016-04-06 06:27] LABS: PLATELET COUNT 373 Th/cmm (150-400)
[2016-04-06 06:47] LABS: ANION GAP 4.3 (7.0-16.0); BUN/CREATININE RATIO 25.4; CALCIUM SERUM 9.1 mg/dL (8.6-10.3); CARBON DIOXIDE 23.1 mEq/L (21.0-31.0); CREATININE - SERUM 1.3 mg/dL (0.6-1.2); POTASSIUM SERUM 4.4 mEq/L (3.5-5.1)
[2016-04-06 10:48] LABS: ANISOCYTOSIS 1+; BAND NEUTROPHILE 4 % (0-10); BASOPHIL 2 % (0-3); EOSINOPHIL 2 % (0-5); NEUTROPHILS 74 % (40-80); PLATELET ESTIMATE ADEQUATE (NORMAL); PLATELET MORPHOLOGY GIANT PLATELETS SEEN (NORMAL); TOTAL CELLS COUNTED 100
--- NOTE | 2016-04-06 11:15 | Diagnostic Imaging Report ---
Abdominal ultrasound HISTORY: Abdominal distention, pain The liver is enlarged. No focal lesions. The gallbladder appears normal. No calculi are seen. No biliary dilatation. Pancreas cannot be seen due to bowel gas. The right kidney is normal in size. There is an increase in cortical echogenicity. Significance should be correlated with renal function tests. No focal lesions or hydronephrosis. The left kidney is normal and size. Somewhat incomplete visualization of the entire kidney. No definite focal lesions or hydronephrosis. There is marked splenomegaly. No significant ascites identified. No other retroperitoneal or intra-abdominal abnormalities. IMPRESSION: 1. Hepatosplenomegaly 2. Increased cortical echogenicity of a normal size right kidney. The significance should be correlated with renal function tests. 3. No ascites identified
[2016-04-06] MEDS: Pantoprazole 40 mg EC Tab PO SCH ×2 (11:23→16:29)
[2016-04-06] MEDS: POLYETHYLENE GLYCOL 3350 17 GM PACK PO SCH (11:23)
[2016-04-06] MEDS: Ferrous Sulfate 325 MG TAB PO SCH (11:23)
[2016-04-06] MEDS: Multivitamin w/ Minerals Tab PO SCH (11:23)
--- NOTE | 2016-04-06 12:56 | Internal Medicine Prog Note ---
Internal Medicine Subjective - Subjective Service Date: 04/06/16 Patient seen and examined:: with staff Patient is:: awake, other (CONFUSED) Per staff patient is:: no adverse event Internal Medicine Objective - Results Result Diagrams: 04/06/16 05:35 04/06/16 05:35 Recent Labs: Laboratory Last Values WBC 8.4 Th/cmm (4.8-10.8) 04/06/16 05:35 RBC 5.30 Mil/cmm (3.80-5.10) H 04/06/16 05:35 Hgb 12.0 gm/dL (11.7-15.5) 04/06/16 05:35 Hct 37.3 % (35.0-45.0) 04/06/16 05:35 MCV 70.3 fl (81-100) L 04/06/16 05:35 MCH 22.7 pg (27.0-31.0) L 04/06/16 05:35 MCHC Differential 32.3 pg (28.0-36.0) 04/06/16 05:35 RDW 23.1 % (11.5-20.0) H 04/06/16 05:35 Plt Count 373 Th/cmm (150-400) D 04/06/16 05:35 MPV 7.8 fl 04/06/16 05:35 Band Neutrophils % 4 % (0-10) 04/06/16 05:35 Neutrophils (Manual) 74 % (40-80) 04/06/16 05:35 Lymphocytes 14 % (20-50) L 04/06/16 05:35 Monocytes 4 % (2-10) 04/06/16 05:35 Eosinophils 2 % (0-5) 04/06/16 05:35 Basophils 2 % (0-3) 04/06/16 05:35 Metamyelocytes 1 % (0-0) H 04/02/16 12:33 Platelet Estimate ADEQUATE (NORMAL) 04/06/16 05:35 Platelet Morphology GIANT PLATELETS SEEN (NORMAL) 04/06/16 05:35 Polychromasia 1+ 04/01/16 20:14 Poikilocytosis 1+ 04/01/16 20:14 Anisocytosis 1+ 04/06/16 05:35 Microcytosis 3+ 04/01/16 20:14 Tear Drop Cells 2+ 04/01/16 20:14 RBC Morph Micro Appear ABNORMAL (NORMAL) 04/06/16 05:35 PT 12.9 SECONDS (9.5-11.5) H 04/02/16 12:33 INR 1.28 (0.5-1.4) 04/02/16 12:33 PTT (Actin FS) 40.4 SECONDS (26.0-38.0) H 04/02/16 12:33 Sodium 133 mEq/L (136-145) L 04/06/16 05:35 Potassium 4.4 mEq/L (3.5-5.1) 04/06/16 05:35 Chloride 110 mEq/L (98-107) H 04/06/16 05:35 Carbon Dioxide 23.1 mEq/L (21.0-31.0) 04/06/16 05:35 Anion Gap 4.3 (7.0-16.0) L 04/06/16 05:35 BUN 33 mg/dL (7-25) H 04/06/16 05:35 Creatinine 1.3 mg/dL (0.6-1.2) H 04/06/16 05:35 Est GFR ( Amer) 57.0 ml/min 04/06/16 05:35 Est GFR (Non-Af Amer) 47.1 ml/min 04/06/16 05:35 BUN/Creatinine Ratio 25.4 04/06/16 05:35 Glucose 93 mg/dL (70-105) 04/06/16 05:35 Calcium 9.1 mg/dL (8.6-10.3) 04/06/16 05:35 Total Bilirubin 0.6 mg/dL (0.3-1.0) 04/01/16 20:14 AST 23 U/L (13-39) 04/01/16 20:14 ALT 15 U/L (7-52) 04/01/16 20:14 Alkaline Phosphatase 110 U/L (34-104) H 04/01/16 20:14 Ammonia 52 umol/L (16-53) 04/06/16 05:35 B-Natriuretic Peptide 160.0 pg/mL (5.0-100.0) H 04/06/16 05:35 Total Protein 7.2 gm/dL (6.0-8.3) 04/01/16 20:14 Albumin 4.0 gm/dL (3.7-5.3) 04/01/16 20:14 Globulin 3.2 gm/dL 04/01/16 20:14 Albumin/Globulin Ratio 1.3 (1.0-1.8) 04/01/16 20:14 Triglycerides 170 mg/dL (<150) H 04/01/16 20:14 Cholesterol 148 mg/dL (<200) 04/01/16 20:14 LDL Cholesterol Direct 66 mg/dL (75-193) L 04/01/16 20:14 HDL Cholesterol 33 mg/dL (23-92) 04/01/16 20:14 Lipase 85 U/L (11-82) H 04/01/16 20:14 Carcinoembryonic Ag 0.8 ng/mL (0.0-4.7) 04/01/16 20:14 CA 19-9 Antigen 10 U/mL (0-35) 04/01/16 20:14 CA 125 Antigen 24.9 U/mL (0.0-38.1) 04/01/16 20:14 Vitamin B12 1137 pg/mL (211-946) H 04/02/16 12:33 Folic Acid 16.8 ng/mL (>3.0) 04/02/16 12:33 TSH 2.89 uIU/ml (0.34-5.60) 04/01/16 20:14 Serum , Qual NEGATIVE (NEGATIVE) 04/01/16 20:14 Urine Source CLEAN C 04/01/16 19:58 Urine Color YELLOW 04/01/16 19:58 Urine Clarity CLEAR (CLEAR) 04/01/16 19:58 Urine pH 6.0 04/01/16 19:58 Ur Specific [place] 1.030 (1.005-1.030) 04/01/16 19:58 Urine Protein >300 mg/dL (NEGATIVE) H 04/01/16 19:58 Urine Glucose (UA) NEGATIVE mg/dL (NEGATIVE) 04/01/16 19:58 Urine Ketones NEGATIVE mg/dL (NEGATIVE) 04/01/16 19:58 Urine Blood SMALL (NEGATIVE) H 04/01/16 19:58 Urine Nitrate NEGATIVE (NEGATIVE) 04/01/16 19:58 Urine Bilirubin NEGATIVE (NEGATIVE) 04/01/16 19:58 Urine Urobilinogen 1.0 E.U./dL (0.2 - 1.0) 04/01/16 19:58 Ur Leukocyte Esterase NEGATIVE (NEGATIVE) 04/01/16 19:58 Urine RBC 0-2 /hpf (0-5) 04/01/16 19:58 Urine WBC 6-10 /hpf (0-5) H 04/01/16 19:58 Ur Epithelial Cells MODERATE /lpf (FEW) 04/01/16 19:58 Urine Bacteria MODERATE /hpf (NONE SEEN) 04/01/16 19:58 Urine Test NEGATIVE 04/01/16 19:58 RPR NONREACTIVE (NONREACTIVE) 04/01/16 20:14 Hepatitis A IgM Ab Negative (Negative) 04/01/16 20:14 Hep Bs Antigen Negative (Negative) 04/01/16 20:14 Hep B Core IgM Ab Negative (Negative) 04/01/16 20:14 Hepatitis C Antibody <0.1 s/co ratio (0.0-0.9) 04/01/16 20:14 Heterophile Ab Screen Positive (Negative) 04/01/16 20:14 - Physical Exam Vitals and I&O: Vital Signs Temp 98.2 F 04/06/16 03:54 Pulse 59 04/06/16 08:36 Resp 18 04/06/16 08:00 BP 119/92 04/06/16 08:36 Pulse Ox 99 04/06/16 03:54 Intake & Output 04/05/16 04/06/16 04/06/16 18:59 06:59 18:59 Intake Total 945 907.5 Balance 945 907.5 Intake: Intake, IV Amount 745 667.5 D5-0.45NS 1,000 ml @ 50 745 667.5 mls/hr IV .Q20H [facility] Rx#: [id number] Oral 200 240 Other: # Voids 2 2 # Bowel Movements 0 Active Medications: Current Medications Acetaminophen (Tylenol) 650 mg PO Q4HR PRN PRN Reason: Pain or Fever >101 Stop: 05/31/16 21:42 Al Hydrox/Mg Hydrox/Simethicone (Maalox) 30 ml PO Q6HR PRN PRN Reason: Constipation Stop: 05/31/16 21:42 Albuterol Sulfate (Albuterol 2.5mg/3ml Neb Ud) 2.5 mg IH Q2HR PRN PRN Reason: Shortness of Breath or Wheeze Stop: 05/31/16 21:42 Ascorbic Acid (Vitamin C) 500 mg PO DAILY [facility] Stop: 06/01/16 08:59 Last Admin: 04/06/16 08:35 Dose: 500 mg Carvedilol (Coreg) 25 mg PO BID [facility] Stop: 06/01/16 08:59 Last Admin: 04/06/16 08:36 Dose: 25 mg Clonazepam (Klonopin) 0.5 mg PO BID [facility] PRN Reason: Protocol Stop: 06/01/16 08:59 Last Admin: 04/06/16 08:35 Dose: 0.5 mg Clonidine HCl (Catapres) 0.1 mg PO Q6HR PRN PRN Reason: SBP GREATER THAN 160 Stop: 06/04/16 11:54 Last Admin: 04/05/16 12:31 Dose: 0.1 mg Docusate Sodium (Colace) 100 mg PO DAILY [facility] Stop: 06/01/16 08:59 Last Admin: 04/06/16 11:22 Dose: Not Given Famotidine (Pepcid) 20 mg PO DAILY [facility] Stop: 06/01/16 08:59 Last Admin: 04/06/16 08:35 Dose: 20 mg Ferrous Sulfate (Iron) 325 mg PO DAILY [facility] Stop: 06/01/16 08:59 Last Admin: 04/06/16 11:23 Dose: Not Given Levofloxacin (Levaquin Pb) 500 mg in 100 mls @ 100 mls/hr IV Q24HR [facility] Stop: 05/31/16 22:59 Last Admin: 04/05/16 22:52 Dose: 100 mls/hr Dextrose/Sodium Chloride (D5-0.45ns) 1,000 mls @ 50 mls/hr IV .Q20H [facility] Stop: 06/02/16 20:34 Last Admin: 04/05/16 21:09 Dose: 50 mls/hr Lisinopril (Zestril) 10 mg PO BID [facility] Stop: 06/04/16 16:59 Last Admin: 04/06/16 11:23 Dose: Not Given Lorazepam (Ativan) 1 mg PO Q4HR PRN; Protocol PRN Reason: Anxiety Stop: 06/01/16 12:58 Meclizine HCl (Antivert) 25 mg PO DAILY PRN PRN Reason: Nausea / Vomiting Stop: 05/31/16 21:42 Miscellaneous (Norgestimate-Ethinyl Estradiol [Ortho Tri-Cyclen 28 Tablet]) 1 each PO DAILY [facility] Stop: 06/01/16 08:59 Olanzapine (Zyprexa) 15 mg PO HS [facility] PRN Reason: Protocol Stop: 06/02/16 20:59 Last Admin: 04/05/16 21:00 Dose: Not Given Ondansetron HCl (Zofran) 4 mg IV Q8H PRN PRN Reason: Nausea / Vomiting Stop: 05/31/16 21:42 Pantoprazole Sodium (Protonix) 40 mg PO BID [facility] Stop: 06/01/16 08:59 Last Admin: 04/06/16 11:23 Dose: Not Given Paroxetine HCl (Paxil) 10 mg PO DAILY [facility] PRN Reason: Protocol Stop: 06/01/16 08:59 Last Admin: 04/06/16 11:23 Dose: Not Given Polyethylene Glycol (Miralax) 17 gm PO DAILY [facility] Stop: 06/02/16 08:59 Last Admin: 04/06/16 11:23 Dose: Not Given Zolpidem Tartrate (Ambien) 10 mg PO HS PRN PRN Reason: Insomnia Stop: 05/31/16 21:42 General: weak, alert HEENT: NC/AT, PERRLA Neck: Supple Lungs: CTAB Cardiovascular: RRR, Normal S1, Normal S2, without murmur Abdomen: soft non-tender, other (+splenomegaly ) Internal Medicine Assmt/Plan - Assessment Assessment: generalized weakness hepatosplenomegaly UTI dehydration - Plan Plan: ivf for hydration ivabx cbc/bmp in am dc planning in am continue current plan of care
[2016-04-06] MEDS: Levofloxacin 500mg/100mL 500 MG/100 ML BAG IV SCH (23:06)
[2016-04-07] MEDS: Pantoprazole 40 mg EC Tab PO SCH (08:51)
[2016-04-07] MEDS: Ferrous Sulfate 325 MG TAB PO SCH (08:51)
[2016-04-07] MEDS: POLYETHYLENE GLYCOL 3350 17 GM PACK PO SCH (08:52)
[2016-04-07] MEDS: Multivitamin w/ Minerals Tab PO SCH (08:54)
--- NOTE | 2016-04-07 18:41 | Discharge Summary ---
CHIEF COMPLAINT: Poor p.o. intake, generalized weakness, UTI, hepatosplenomegaly, dehydration, noncompliance. HISTORY OF PRESENT ILLNESS: This is a 45-year-old -[place] female was brought in secondary to 10-pound weight loss and not eating or drinking. The patient also complains of abdominal pain and pelvic pain. The patient admitted for further management. PHYSICAL EXAMINATION: VITAL SIGNS: Blood pressure 154/73, respirations 18, ____. GENERAL: Elderly female, appears stated age. NECK: Supple. No mass. LUNGS: Equal breath sounds with few rhonchi. HEART: Regular rate and rhythm with few appreciable murmurs. ABDOMEN: Soft, globular, positive bowel sounds. EXTREMITIES: Positive excoriations. NEUROLOGY: Limited. HOSPITAL COURSE: The patient was admitted to medical floor, continued IV hydration. The patient was referred to ____ for adjustment of her psychotropic medications. Dr. Luis for Gastroenterology, the patient advised to have ____ versus coloscopy, but patient apparently refused. The patient was given IV hydration and her condition did improve. The patient was given Levaquin and also improved and the patient was cleared for discharge. CONDITION ON DISCHARGE: Fair. DISCHARGE INSTRUCTIONS: The patient is to continue with the current medical regimen. Primary will be following her in her nursing facility. JOB# [id number]
== END 2016-04-07 13:00 | DRG 463 ==
LOC: ER 17:19 → MSI 21:50
PROVIDERS: ADMIT Internal Medicine; ATTEND Internal Medicine
DX: N39.0 Urinary tract infection, site not specified (principal); D68.69 Other thrombophilia; R16.1 Splenomegaly, not elsewhere classified; F03.90 Unspecified dementia, unspecified severity, without behavioral disturbance, psychotic disturbance, mood disturbance, and anxiety; F25.9 Schizoaffective disorder, unspecified; E87.1 Hypo-osmolality and hyponatremia; E86.0 Dehydration; R53.1 Weakness; I10 Essential (primary) hypertension; K21.9 Gastro-esophageal reflux disease without esophagitis; F32.9 Major depressive disorder, single episode, unspecified; K56.41 Fecal impaction; R63.4 Abnormal weight loss
CPT/HCPCS: 36415-UA; 76700-TC; 78215-TC; 80048-TC; 80053-TC; 80061-TC; 80074-90; 81001-TC; 81025-TC; 82140-TC; 82378-90; 82607-90; 82746-90; 82977-90; 83690-TC; 83880-TC; 84443-TC; 85007-TC; 85027-TC; 85610-TC; 86301-90; 86304-90; 86308-90; 86592-TC; 93005; A9500; J1956; Z7610